=== PATIENT | female | born 1995 | race Caucasian/White ===

== ENCOUNTER → 2019-03-04 | Outpatient (CLI) | payer BC | END | disposition home or self-care (01) | LOC: US 16:39 | DX: N91.2 Amenorrhea, unspecified (principal) ==

== ENCOUNTER → 2019-09-01 | Outpatient (CLI) | payer BC | END | disposition home or self-care (01) | LOC: US 12:57 | DX: Z34.81 Encounter for supervision of other normal pregnancy, first trimester (principal); Z3A.09 9 weeks gestation of pregnancy ==

== ENCOUNTER → 2019-11-07 | Outpatient (CLI) | payer BC | END | disposition home or self-care (01) | LOC: US 16:26 | DX: Z34.82 Encounter for supervision of other normal pregnancy, second trimester (principal); Z3A.15 15 weeks gestation of pregnancy ==

== ENCOUNTER → 2019-12-02 | Outpatient (CLI) | payer BC | END | disposition home or self-care (01) | LOC: US 11-24 17:00 | DX: Z34.82 Encounter for supervision of other normal pregnancy, second trimester (principal); Z3A.22 22 weeks gestation of pregnancy ==

== ENCOUNTER → 2020-01-24 | Outpatient (CLI) | payer BC | END | disposition home or self-care (01) | LOC: US 13:59 | DX: O32.1XX0 Maternal care for breech presentation, not applicable or unspecified (principal); Z3A.30 30 weeks gestation of pregnancy ==

== ENCOUNTER → 2020-02-15 | Outpatient (CLI) | payer BC | END | disposition home or self-care (01) | LOC: US 14:00 | DX: Z34.83 Encounter for supervision of other normal pregnancy, third trimester (principal); Z3A.33 33 weeks gestation of pregnancy ==

== ENCOUNTER → 2020-03-23 | Outpatient (CLI) | payer BC | END | disposition home or self-care (01) | LOC: US 13:00 | DX: Z34.83 Encounter for supervision of other normal pregnancy, third trimester (principal); Z3A.38 38 weeks gestation of pregnancy ==

== ENCOUNTER → 2020-08-04 | Outpatient (CLI) | payer BC | END | disposition home or self-care (01) | LOC: COVID19 12:52 | PROVIDERS: ATTEND Nurse Practitioner Family | DX: Z20.828 Contact with and (suspected) exposure to other viral communicable diseases (principal) ==

== ENCOUNTER → 2020-08-09 | Outpatient (CLI) | payer BC | END | disposition home or self-care (01) | LOC: COVID19 11:44 | PROVIDERS: ATTEND Family Medicine | DX: U07.1 COVID-19 (principal) ==